=== PATIENT | female | born 1985 | race Caucasian/White ===

== ENCOUNTER 2023-11-20 17:48 | Emergency (ER) | payer OTHER ==
[2023-11-20 18:08] VITALS: TEMP 98.1
--- NOTE | 2023-11-20 18:34 | ED ---
Upper Extremity HPI - General Chief Complaint: Extremity Injury, Upper Stated Complaint: Animal bite to L hand Time Seen by Provider: 11/20/23 18:00 Source: patient, RN notes reviewed Mode of arrival: ambulatory Limitations: no limitations - History of Present Illness Initial Comments: 38-year-old female presents emergency department chief complaint of injury to left index finger. Patient was breaking up a fight between her dogs noticed bruising to her right index finger and left deformity of the nail. States that her dogs are denied vaccination, patient is unaware of when her last tetanus vaccination was. Patient has mobility of fingers, denies paresthesias. - Related Data Previous Rx's Medication Instructions Recorded Amoxic-Pot Clav 875-125Mg 1 tab PO Q12HR #20 tab 11/20/23 [Augmentin 875-125] Allergies Allergy/AdvReac Type Severity Reaction Status Date / Time No Known Allergies Allergy Verified 11/20/23 17:58 Review of Systems ROS Statement: Those systems with pertinent positive or pertinent negative responses have been documented in the HPI. ROS Other: All systems not noted in ROS Statement are negative. Past Medical History Past Medical History: No Reported History History of Any Multi-Drug Resistant Organisms: None Reported Past Surgical History: Appendectomy Past Psychological History: No Psychological Hx Reported Smoking Status: Vaper Past Alcohol Use History: Occasional Past Drug Use History: None Reported General Exam Limitations: no limitations Course Vital Signs 11/20/23 11/20/23 17:56 18:28 Temperature 98.1 F Pulse Rate 66 74 Respiratory 20 18 Rate Blood Pressure 128/92 133/65 O2 Sat by Pulse 99 99 Oximetry Procedures - Laceration Laceration #1 Consent Obtained: verbal consent Indication: laceration Site: hand Size (cm): 3 Description: linear Depth: simple, single layer Anesthetic Used: lidocaine 1% Anesthesia Technique: local infiltration, nerve block Amount (mls): 3 Pre-repair: irrigated extensively Size of Sutures: 5-0, other (2 simple interrupted sutures placed) Technique: simple, interrupted Patient Tolerated Procedure: well, no complications - Nerve Block Consent Obtained: verbal consent Local Anesthetic Used: Lidocaine 1% Amount of anesthesia used: 4 Side: left Nerve Blocks: digital Medical Decision Making - Medical Decision Making Was pt. sent in by a medical professional or institution (, PA, [employer], urgent care, hospital, or [facility]...) When possible be specific @ -No Did you speak to anyone other than the patient for history (EMS, parent, family, police, friend...)? What history was obtained from this source @ -No Did you review nursing and triage notes (agree or disagree)? Why? @ -I reviewed and agree with nursing and triage notes Were old charts reviewed (outside hosp., previous admission, EMS record, old EKG, old radiological studies, urgent care reports/EKG's, [facility] records)? Report findings @ -No old charts were reviewed Differential Diagnosis (chest pain, altered mental status, abdominal pain women, abdominal pain men, vaginal bleeding, weakness, fever, dyspnea, syncope, headache, dizziness, GI bleed, back pain, seizure, CVA, palpatations, mental health, musculoskeletal)? @ -Animal bite, laceration EKG interpreted by me (3pts min.). @ -None X-rays interpreted by me (1pt min.). @ X-ray of the left finger no acute fracture or foreign bodies CT interpreted by me (1pt min.). @ -None done U/S interpreted by me (1pt. min.). @ -None done What testing was considered but not performed or refused? (CT, X-rays, U/S, labs)? Why? @ -None What meds were considered but not given or refused? Why? @ -None Did you discuss the management of the patient with other professionals (professionals i.e. , PA, [employer], lab, RT, psych nurse, social welfare research worker, wet inspector optical glass, teacher, alumni relations officer, case making machine operator)? Give summary @ -No Was smoking cessation discussed for >3mins.? @ -No Was critical care preformed (if so, how long)? @ -No Were there social determinants of health that impacted care today? How? (Homelessness, low income, unemployed, alcoholism, drug addiction, transportation, low edu. Level, literacy, decrease access to med. care, half-way, rehab)? @ -No Was there de-escalation of care discussed even if they declined (Discuss DNR or withdrawal of care, Hospice)? DNR status @ -No What co-morbidities impacted this encounter? (DM, HTN, Smoking, COPD, CAD, Cancer, CVA, ARF, Chemo, Hep., AIDS, mental health diagnosis, sleep apnea, morbid obesity)? @ -None Was patient admitted / discharged? Hospital course, mention meds given and route, prescriptions, significant lab abnormalities, going to OR and other pertinent info. @ -Discharged. 38-year-old female chief complaint of dog bite. On examination left distal finger showed to have fingernail removed with a 3 cm laceration of the pad of the DIP. X-ray with no acute fracture or foreign body in soft tissue. Bite and patient were extensively irrigated with Betadine and sterile water. 2 simple interrupted sutures were placed on the patient's pad of the finger. Patient was discharged with Augmentin. Discussed return parameters with the patient. She is stable for discharge. Discussed with Dr. Waddell Undiagnosed new problem with uncertain prognosis? @ -No Drug Therapy requiring intensive monitoring for toxicity (Heparin, Nitro, Insulin, Cardizem)? @ -No Were any procedures done? @ -No Diagnosis/symptom? @ -Animal bite, laceration Acute, or Chronic, or Acute on Chronic? @ -acute Uncomplicated (without systemic symptoms) or Complicated (systemic symptoms)? @ -uncomplicated Side effects of treatment? @ -No Exacerbation, Progression, or Severe Exacerbation? @ -No Poses a threat to life or bodily function? How? (Chest pain, [place], [place], pneumonia, PE, COPD, DKA, ARF, appy, cholecystitis, CVA, Diverticulitis, Homicidal, Suicidal, threat to staff... and all critical care pts) @ -No Disposition Clinical Impression: Laceration, Animal bite Narrative: Please return to the Emergency Department if symptoms worsen or any other concerns. Disposition: HOME SELF-CARE Condition: Good Prescriptions: Amoxic-Pot Clav 875-125Mg [Augmentin 875-125] 1 tab PO Q12HR #20 tab Is patient prescribed a controlled substance at d/c from ED?: No Referrals: None,Stated [Primary Care Provider] - 1-2 days Time of Disposition: 19:31
[2023-11-20] MEDS: MORPHINE SULFATE 2 MG/ML SYRINGE IM ONE (18:39)
[2023-11-20] MEDS: DIPH,PERTUS(ACELL)TETVAC-LF 0.5 ML VIAL IM ONE (18:43)
--- NOTE | 2023-11-20 19:01 | XR ---
PROCEDURE: XR finger LT - 3V DATE AND TIME: 11/20/2023 6:40 PM CLINICAL INDICATION: PH[facility]; dog bite, injury INDEX FINGER TECHNIQUE: Department protocol COMPARISON: None FINDINGS: Soft tissue irregularity noted at the tip of the index finger. No radiopaque foreign body or soft tis lizette emphysema. No acute fracture/malalignment. No focal osseous lesions. IMPRESSION: Soft tissue findings.
[2023-11-20] MEDS: LIDOCAINE 1% INJ 10MG/ML (20 ML MDV) SQ ONE (19:02)
[2023-11-20] MEDS ORDERED: TRANEXAMIC ACID 1,000 MG/10 ML VIAL IRRIGATION ONE (19:02)
[2023-11-20 19:19] VITALS: BP 133/65; PULSE 74; RESP 18
== END 2023-11-20 19:40 | disposition home or self-care (01) ==
LOC: EC 17:48
DX: S61.412A Laceration without foreign body of left hand, initial encounter (principal); F17.290 Nicotine dependence, other tobacco product, uncomplicated; Z23 Encounter for immunization; W54.0XXA Bitten by dog, initial encounter
CPT/HCPCS: 73140; 90715; 99283; 90471; 96372; 12002; J2001; J2270